=== PATIENT | male | born 1950 | race Caucasian/White ===

== ENCOUNTER 2018-08-06 06:53 | Emergency (ER) | payer OTHER ==
[~2018-08-06] VITALS: Ht 185.4 cm; Wt 97.5 kg
[2018-08-06] MEDS ORDERED: ZOCOR20 MG PO (07:13)
[2018-08-06] MEDS ORDERED: CENTRUM SILVER1 EAC2 PO (07:13)
[2018-08-06] MEDS ORDERED: NAPROSYN500 MG PO (08:55)
[2018-08-06] MEDS ORDERED: NORCO 5-325 TA1 EACH PO (08:55)
[2018-08-06 09:00] VITALS: BP 108/66
== END 2018-08-06 09:00 | disposition home or self-care (01) ==
LOC: M.ERS 06:53
DX: M54.12 Radiculopathy, cervical region (principal); F41.9 Anxiety disorder, unspecified; E78.5 Hyperlipidemia, unspecified; Z85.9 Personal history of malignant neoplasm, unspecified

== ENCOUNTER 2020-07-06 05:46 | Emergency (ER) | payer OTHER ==
[~2020-07-06] VITALS: Ht 182.9 cm; Wt 96.6 kg
[~2020-07-06 05:46] MED LIST: CENTRUM SILVER1 EAC2 PO; NAPROSYN500 MG PO; NORCO 5-325 TA1 EACH PO; ZOCOR20 MG PO
[2020-07-06 07:18] LABS: ABSOLUTE EOSINOPHILS 0.4 thou/uL (0.0-0.7); ABSOLUTE LYMPHOCYTES 1.3 thou/uL (0.8-5.3); ABSOLUTE MONOCYTES 0.4 thou/uL (0.0-1.2); ABSOLUTE NEUTROPHILS 2.4 thou/uL (1.6-8.1); EOSINOPHILS 7.9 %; HEMATOCRIT 35.5 % (42.0-52.0); HEMOGLOBIN 12.3 gm/dL (14.0-18.0); LYMPHOCYTES 29.3 %; MCH 30.8 pg (26.0-34.0); MCHC 34.7 g/dL (28.0-37.0); MCV 88.8 fL (80.0-100.0); MONOCYTES 8.2 %; MPV 6.9 fl. (7.2-11.1); NUCLEATED RBCS 0 /100WBC; PLATELET COUNT* 151 thou/uL (150-400); POLYS 53.6 %; WBC 4.5 thou/uL (4.0-11.0)
[2020-07-06 07:26] LABS: CALCIUM 8.1 mg/dL (8.5-10.1); CREATININE 1.3 mg/dL (0.6-1.3); POTASSIUM 3.9 mmol/L (3.5-5.1)
[2020-07-06 07:30] LABS: ALBUMIN 3.5 g/dL (3.4-5.0); TOTAL BILIRUBIN 0.4 mg/dL (<0.1-1.0); TOTAL PROTEIN 6.7 g/dL (6.4-8.2)
[2020-07-06 08:10] VITALS: BP 144/93
--- NOTE | 2020-07-06 12:47 | EKG ---
[place] [address] ELECTROCARDIOGRAM REPORT Name: VIVEK MOORE Room: 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: [place] : 1950 Requested By: Sowmya Ulloa Order Number: [id number] MD: Chapin Gonzalez Measurements Intervals [place] Rate: 58 P: 37 [place]: 168 QRS: 1 QRSD: 97 T: 10 QT: 452 QTc: 445 Interpretive Statements Sinus rhythm Baseline wander in lead(s) V3 Compared to ECG 04/11/2008 04:55:00 No significant changes Electronically Signed On 07-06-2020 12:47:43 [employer] MANAGER by Chapin Gonzalez [email or web address] <ELECTRONICALLY SIGNED> By: Chapin Gonzalez MD, FACC 07/06/20 [id number] Chapin Gonzalez MD, [facility] /EPI
== END 2020-07-06 08:10 | disposition home or self-care (01) ==
LOC: M.ERS 05:46
PROVIDERS: Emergency Medicine
DX: R20.2 Paresthesia of skin (principal); R20.0 Anesthesia of skin; E78.5 Hyperlipidemia, unspecified; Z79.899 Other long term (current) drug therapy